=== PATIENT | male | born 1965 | race Caucasian/White ===

== ENCOUNTER → 2017-10-08 | Outpatient (CLI) | payer OTHER ==
--- NOTE | 2017-10-08 13:30 | XR ---
EXAMINATION TYPE: XR cervical spine w flex/ext DATE OF EXAM: 10/08/2017 COMPARISON: NONE HISTORY: Follow-up surgery TECHNIQUE: 6 views are submitted including flexion and extension lateral views. FINDINGS: The odontoid is intact. There are no compression deformities. The prevertebral soft tissue structur es are within normal limits. Extensive postsurgical changes noted throughout the cervical spine exte nding from C3 through the upper thoracic spine. Hypertrophic and degenerative disc disease at levels C3-C7. There is loss the normal lordosis. Alignment remains stable upon flexion and extension IMPRESSION: 1. Postoperative change which remains stable in flexion and extension.
== END | disposition home or self-care (01) ==
LOC: RADXRYALE 13:08
PROVIDERS: ATTEND Orthopaedic Surgery
DX: Z09 Encounter for follow-up examination after completed treatment for conditions other than malignant neoplasm (principal); Z98.1 Arthrodesis status; Z98.890 Other specified postprocedural states
CPT/HCPCS: 72052

== ENCOUNTER → 2017-11-05 | Outpatient (CLI) | payer OTHER ==
--- NOTE | 2017-11-08 09:28 | MR ---
EXAMINATION TYPE: MR cervical spine wo/w con DATE OF EXAM: 11/05/2017 COMPARISON: 03/30/2016 HISTORY: Fusion, Brachial radiculitis TECHNIQUE: Multiplanar, multisequence images of the cervical spine were acquired utilizing 8.5 mL intravenous Ga davist gadolinium contrast. Diffusion weighted imaging was performed. FINDINGS: There is posterior approach fusion of the C3-T1 vertebral bodies creating susceptibility ar tifact, new from the prior. The previously seen narrowing of the spinal canal and an AP diameter, pre sumably on a congenital basis, has been resolved as there is resection of the posterior elements at m ultiple levels. Bone marrow signal is within normal limits. Vertebral body heights and alignment are maintained. C2-C3: There is a new central small disc herniation with associated disc osteophyte complex. This res ults in minimal impression upon the ventral subarachnoid space although no spinal canal stenosis is i dentified by measurement. Neural foramen appear patent. C3-C4: Posterior fusion device. Susceptibility artifact. There appears to be resection of the fingerprint technician ior elements without spinal canal stenosis. A broad-based disc bulge with right paracentral disc prot rusion has been partially resected with mild bilateral neural foraminal narrowing remaining from unco vertebral hypertrophy and facet arthropathy. C4-C5: There is been interval resection of the previously seen disc protrusion. Mild right neural for aminal narrowing remains as result of facet arthropathy and uncovertebral hypertrophy. Spinal canal a nd neural foramen on the left appear patent. Resection of the spinous processes is seen. Susceptibili ty artifact from fusion hardware limits this level. C5-C6: Although there is limitation in visualization there appears to be a residual or recurrent left paracentral disc herniation creating impression upon the ventral subarachnoid space although posteri or element decompression relieves the previously seen spinal canal stenosis. There remains mild right and moderate left neural foraminal narrowing from uncovertebral hypertrophy and facet arthropathy. C6-C7: There remains a small left paracentral disc herniation although posterior elements have been r esected decompressing any spinal canal stenosis. Moderate right neural foraminal narrowing is also se en as result of uncovertebral hypertrophy and facet arthropathy. Left neural foramen appears patent. Susceptibility artifact slightly screws visualization at this level. C7-T1: Right eccentric disc bulge is present crating moderate right neural foraminal narrowing. Spina l canal and left neural foramen appear patent. Susceptibility artifact slightly screws visualization at this level. There is no evidence of abnormal postcontrast enhancement to suggest epidural fibrosis. Subcutaneous enhancement suggests fibrosis within the subcutaneous tunnel soft tissues. IMPRESSION: 1. Interval posterior approach cervical fusion of C3-T1 relieving multilevel spinal canal stenosis. T his creates susceptibility artifact and partially obscures visualization. No evidence of epidural fib rosis or abnormal postcontrast enhancement. 2. New small central disc herniation at C2-C3 without neural foraminal narrowing or spinal canal sten osis. 3. Multilevel residual or recurrent disc herniations as described above without spinal canal stenosis . Multilevel neural foraminal narrowing has not progressed from the prior exam, some improved as desc ribed above, due to uncovertebral hypertrophy and facet arthropathy.
== END | disposition home or self-care (01) ==
LOC: RADMRIMAIN 12:45
PROVIDERS: ATTEND Orthopaedic Surgery
DX: M48.02 Spinal stenosis, cervical region (principal); M99.71 Connective tissue and disc stenosis of intervertebral foramina of cervical region; M50.21 Other cervical disc displacement, high cervical region; M46.82 Other specified inflammatory spondylopathies, cervical region; Z98.1 Arthrodesis status
CPT/HCPCS: 72156; A9581

== ENCOUNTER → 2018-03-02 | Outpatient (CLI) | payer OTHER ==
--- NOTE | 2018-03-03 13:43 | CT ---
EXAMINATION TYPE: CT cervical spine wo con DATE OF EXAM: 03/02/2018 COMPARISON: MR cervical spine 11/05/2017 HISTORY: Arthrodesis follow up. CT DLP: 627 mGycm Automated exposure control for dose reduction was used. TECHNIQUE: CT scan of the cervical spine is obtained without contrast, axial images are obtained, sagittal and c oronal reformatted images are also reviewed. FINDINGS: Patient is status post posterior cervical fusion at T3-T1, fixation rods and posterior screws causes some streak artifact. Laminectomies present at C4, C5, C6. Alignment is maintained. There is multilev el spondylosis, loss of disc height C3-4, C4-5 and C5-6. Multilevel foraminal encroachment due to unc overtebral joint hypertrophy to include the right at 7, left greater than right C5-6, the right at C3 -4. No significant central canal stenosis. Cervical spine is visualized in its entirety from C1 through upper thoracic levels, minimal posterior disc bulge at C3-4 is noted. Prevertebral soft tissue appears within normal limits. The C1-C2 artic ulation is within normal limits on the coronal images. IMPRESSION: Surgical follow-up as described.
== END | disposition home or self-care (01) ==
LOC: RADCTMAIN 15:23
PROVIDERS: ATTEND Orthopaedic Surgery
DX: Z47.89 Encounter for other orthopedic aftercare (principal); M47.812 Spondylosis without myelopathy or radiculopathy, cervical region; Z98.1 Arthrodesis status
CPT/HCPCS: 72125

== ENCOUNTER → 2018-07-01 | Outpatient (CLI) | payer OTHER ==
--- NOTE | 2018-07-01 15:45 | CT ---
EXAMINATION TYPE: CT cervical spine wo con DATE OF EXAM: 07/01/2018 COMPARISON: CT cervical spine March 02, 2018. MRI cervical spine November 05, 2017 HISTORY: Bilateral arm numbness, history of fusion. CT DLP: 641 mGycm. Automated Exposure Control for Dose Reduction was Utilized. TECHNIQUE: CT scan of the cervical spine is obtained without contrast, axial images are obtained, sa gittal and coronal reformatted images are also reviewed. FINDINGS: Cervical spine is visualized in its entirety from C1 through upper thoracic levels, demonst rates straightened alignment without evidence of acute fracture or dislocation. Prevertebral soft ti ssue appears within normal limits. The C1-C2 articulation is within normal limits on the coronal vinay ges. Vertebral body heights are maintained. There is mild to moderate multilevel disc space narrowing with mild to moderate multilevel anterior spurring posterior fusion hardware noted C3-T1 levels bila terally similar to prior. There is posterior spinous process resection C4-C6 levels redemonstrated. Axial images at C3-C4 level show mild to moderate right-sided neural foraminal narrowing due to uncov ertebral facet spurring axial image 41 not significant change from prior. Axial images at C4-C5 level show uncovertebral facet degenerative changes bilaterally causing moderat e right and mild left-sided neural foraminal narrowing. Postsurgical change redemonstrated. Axial images at C5-C6 level shows posterior spurring and uncovertebral facet joint spurring with mode rate left greater than right bilateral neural foraminal narrowing redemonstrated. There is effacement of the left anterior thecal sac axial image 58 redemonstrated. Left paracentral disc protrusion also effaces anterior thecal sac on axial image 59. Axial images at C6-C7 level shows posterior fusion hardware with right lateral spurring causing asymm etric moderate right-sided neural foraminal narrowing. Axial images at C7-T1 level show posterior fusion hardware, spinal canal is preserved, bilateral neur al foramina are patent. Thyroid gland is normal in size. Lung apices are clear. IMPRESSION: Redemonstration of extensive postsurgical change C3-T1 levels with stable alignment. Rede monstration of multilevel degenerative changes as detailed above without significant change from prio r studies.
== END | disposition home or self-care (01) ==
LOC: RADCTMAIN 14:44
PROVIDERS: ATTEND Orthopaedic Surgery
DX: M47.812 Spondylosis without myelopathy or radiculopathy, cervical region (principal); Z98.890 Other specified postprocedural states; Z98.1 Arthrodesis status
CPT/HCPCS: 72125

== ENCOUNTER → 2018-07-12 | Outpatient (CLI) | payer OTHER ==
--- NOTE | 2018-07-12 12:33 | MR ---
EXAMINATION TYPE: MR lumbar spine wo con DATE OF EXAM: 07/12/2018 COMPARISON: None HISTORY: LT L4 Radiculopathy TECHNIQUE: Multiplanar, multisequence images of the lumbar spine were acquired. FINDINGS: There is slight straightening of usual lumbar lordosis, likely related to patient positioni ng. Conus medullaris is unremarkable terminating at L1. Bone marrow signal is within normal limits ot her than multilevel discogenic endplate changes. Multilevel disc desiccation is seen. L1-L2: There is a broad-based disc bulge and facet arthropathy resulting in mild bilateral neural for aminal narrowing and mild spinal canal stenosis. L2-L3: There is a broad-based disc bulge, facet arthropathy and ligamentum flavum buckling resulting in mild spinal canal stenosis and mild bilateral neural foraminal narrowing. L3-L4: There is a broad-based disc bulge, facet arthropathy and ligamentum flavum buckling. Consequen tly there is mild bilateral neural foraminal narrowing and mild spinal canal stenosis. L4-L5: Again a broad-based disc bulge, facet arthropathy and ligamentum flavum buckling are noted cre ating mild to moderate left and mild right neural foraminal narrowing and mild spinal canal stenosis. L5-S1: Small broad-based disc bulge is seen creating mild bilateral neural foraminal narrowing. No sp inal canal stenosis. IMPRESSION: Although there is no focal disc herniation multilevel broad-based disc bulges, facet arthropathy and ligamentum flavum buckling contribute to mild spinal canal stenosis from L1 through L5. There is also multilevel neural foraminal narrowing, most severe at L4-L5 on the left narrowing the foramen with t he exiting L4 nerve root is, at the level of the patient's stated symptomatic radiculopathy.
== END | disposition home or self-care (01) ==
LOC: RADMRIMAIN 11:45
PROVIDERS: ATTEND Internal Medicine
DX: M48.061 Spinal stenosis, lumbar region without neurogenic claudication (principal)
CPT/HCPCS: 72148

== ENCOUNTER → 2018-07-12 | Outpatient (CLI) | payer OTHER ==
--- NOTE | 2018-07-15 08:46 | EEG ---
ELECTROENCEPHALOGRAM REPORT DATE OF PROCEDURE: 07/12/2018 ELECTROENCEPHALOGRAM (EEG) REPORT: TECHNIQUE: A routine 18-channel EEG was performed with video using the 10-20 international placement system. HISTORY: Bilateral arm numbness for one week and smell's smoke twice per day. Approximately 30 months ago patient had a work-related injury resulting in a TBI and a C-spine fracture. CURRENT MEDICATIONS: Seroquel. STUDY DURATION: 28 minutes. FINDINGS: BACKGROUND: The background activity consisted of 8-9 Hz rhythmic waveforms, symmetrically distributed to both posterior quadrants. ACTIVATION: Hyperventilation not performed. PHOTIC STIMULATION: Symmetric driving seen. SLEEP: Drowsy. ABNORMALITIES: On one occasion during this recording a single sharp wave was seen over the left frontotemporal region with phase reversal at T3. IMPRESSION: Potentially abnormal EEG. As mentioned, on one occasion a sharp wave was seen over the left frontotemporal region. This was potentially epileptiform in nature. Please note that a definitive conclusion could not be reached as this was seen only one time during the study. Clinical correlation is recommended. If clinical concern remains for a seizure disorder, a longer term EEG could be considered. No seizures were recorded. MMODL / IJN: [id number] /
== END | disposition home or self-care (01) ==
LOC: NEUROMAIN 11:50
PROVIDERS: ATTEND Internal Medicine
DX: S06.9X0D Unspecified intracranial injury without loss of consciousness, subsequent encounter (principal)
CPT/HCPCS: 95816

== ENCOUNTER → 2018-10-15 | Outpatient (CLI) | payer OTHER ==
--- NOTE | 2018-10-15 20:22 | MR ---
EXAMINATION TYPE: MR cervical spine wo con DATE OF EXAM: 10/15/2018 COMPARISON: Prior MR cervical spine 03/30/2016 and 11/05/2017, CT cervical spine 07/01/2018 HISTORY: TECHNIQUE: Multiplanar, multisequence images of the cervical spine were acquired. C2-C3: No evidence for degenerative disc disease. No disc bulge/herniation or protrusion. No Canal stenosis. Foramina are patent bilaterally. C3-C4: There is some right-sided foraminal encroachment due to uncovertebral joint hypertrophy as on prior, no significant central stenosis. Small posterior broad-based disc bulge is noted. C4-C5: Similar appearance to prior exam. There is lateral extension of disc bulge causing some forami nal encroachment on the right similar to prior exam. C5-C6: No evidence for degenerative disc disease. No disc bulge/herniation or protrusion. No Canal stenosis. Foramina are patent bilaterally. C6-C7: Lateral disc bulge encroaches somewhat on the neural foramen on the right similar to prior exa m. C7-T1: No evidence for degenerative disc disease. No disc bulge/herniation or protrusion. No Canal stenosis. Foramina are patent bilaterally. Posterior arthrodesis C3-T1, there is susceptibility artifact. There is normal alignment. Cervical s hugo cord is of normal signal. Craniovertebral junction relationships are within normal limits. Po stop changes are again noted status post posterior cervical fusion and multilevel laminectomies. Ther e is stable alignment. Disc spaces show a stable appearance compared to prior exam. There is spondylo sis present especially at C3-4, C4-5 with associated loss of disc height and signal also noted at C5- 6 and C6-7. No significant spinal stenosis. IMPRESSION: Stable degenerative disc disease, postop findings and additional findings above.
== END | disposition home or self-care (01) ==
LOC: RADMRIMAIN 11:13
PROVIDERS: ATTEND Neurological Surgery
DX: M47.892 Other spondylosis, cervical region (principal); M50.31 Other cervical disc degeneration, high cervical region; Z98.1 Arthrodesis status
CPT/HCPCS: 72141

== ENCOUNTER → 2019-01-06 | Outpatient (CLI) | payer OTHER ==
--- NOTE | 2019-01-07 10:08 | XR ---
EXAMINATION TYPE: XR hand complete RT DATE OF EXAM: 01/06/2019 CLINICAL HISTORY: pain TECHNIQUE: Frontal, lateral and oblique images of the right hand are obtained. COMPARISON: None. FINDINGS: There is no acute fracture/dislocation evident. The joint spaces appear within normal limi ts. The overlying soft tissue appears unremarkable. IMPRESSION: There is no acute fracture or dislocation ICD 10 NO FRACTURE, INITIAL EVALUATION
== END | disposition home or self-care (01) ==
LOC: RADXRYALE 16:14
PROVIDERS: ATTEND Family Medicine
DX: M25.531 Pain in right wrist (principal)

== ENCOUNTER → 2019-01-20 | Outpatient (CLI) | payer OTHER ==
--- NOTE | 2019-01-23 02:17 | MR ---
EXAMINATION TYPE: MR wrist RT wo con DATE OF EXAM: 01/20/2019 COMPARISON: None HISTORY: Rt wrist pain Standard multiplanar, multisequence MRI departmental protocol Multiplanar, multisequence images of the right wrist were acquired. FINDINGS: There is slight narrowing of the radiocarpal joint space. The carpal bones appear intact. T he triangular cartilage appears intact. Flexor and extensor tendons appear intact. I see no focal bon e destruction. Intercarpal joint spaces are fairly normal. There are no erosions. There is no subluxa tion. There is minor spurring at the first carpometacarpal joint. There is mild increased fluid aroun d the first carpometacarpal joint. There is slight increased fluid at the distal radiohumeral joint. There is mild increased fluid signal within the posterior soft tissues at the capitate. There is a 4 mm degenerative cyst in the capitate. There is no evidence of a soft tissue mass. IMPRESSION: Minimal osteoarthritis at the first carpometacarpal joint. Minimal osteoarthritis at the radiocarpal joint. Mild increased carpal fluid consistent with mild synovitis.
== END | disposition home or self-care (01) ==
LOC: RADMRIMAIN 19:18
PROVIDERS: ATTEND Family Medicine
DX: M18.11 Unilateral primary osteoarthritis of first carpometacarpal joint, right hand (principal)

== ENCOUNTER → 2019-05-04 | Outpatient (CLI) | payer OTHER ==
--- NOTE | 2019-05-04 11:34 | XR ---
EXAMINATION TYPE: XR chest 2V DATE OF EXAM: 05/04/2019 COMPARISON: NONE TECHNIQUE: PA and lateral views submitted. HISTORY: Shortness of breath FINDINGS: The lungs are clear and there is no pneumothorax, pleural effusion, or focal pneumonia. Hypertrophi c and degenerative change of the spine. Postsurgical change involving the cervical spine. Heart is en larged and measures mild coarsened interstitium which likely is chronic. Arthropathy of the shoulders . Mild soft tissue prominence along the right cardiophrenic angle. IMPRESSION: 1. Coarsened interstitium can be associated with chronic interstitial lung disease or bronchitis. Add itionally is prominence along the right cardiophrenic angle for which CT scan of the chest is recomme nded 2. Cardiomegaly.
== END | disposition home or self-care (01) ==
LOC: RADXRYALE 10:43
PROVIDERS: ATTEND Family Medicine
DX: I51.7 Cardiomegaly (principal)
CPT/HCPCS: 71046

== ENCOUNTER → 2019-05-19 | Outpatient (CLI) | payer OTHER ==
--- NOTE | 2019-05-19 09:11 | CT ---
EXAMINATION TYPE: CT chest wo con DATE OF EXAM: 05/19/2019 COMPARISON: None HISTORY: Interstitial pulmonary disease, unspecified CT DLP: [address] of the chest was performed with lung and mediastinal window settings submitted. The la ck of contrast limits evaluation of the vascular, mediastinal and parenchymal structures including th e upper abdomen. LUNGS: The lungs are clear and free of infiltrate. No atelectasis. No pulmonary nodule or mass is de tected. No pleural effusion. No CT evidence of interstitial lung disease. MEDIASTINUM/CAMI: Thoracic aorta is of normal caliber with limited evaluation given lack of contrast . The heart is not enlarged. No evidence for mediastinal mass. No lymph nodes greater than 1cm. UPPER ABDOMEN: No significant abnormality is seen. OTHER: No significant other abnormality. IMPRESSION: 1. No evidence for interstitial lung disease at this time.
== END | disposition home or self-care (01) ==
LOC: RADCTMAIN 08:16
PROVIDERS: ATTEND Family Medicine
DX: J84.9 Interstitial pulmonary disease, unspecified (principal); R93.89 Abnormal findings on diagnostic imaging of other specified body structures
CPT/HCPCS: 71250

== ENCOUNTER → 2019-06-13 | Outpatient (CLI) | payer OTHER ==
--- NOTE | 2019-06-13 22:09 | CT ---
EXAMINATION TYPE: CT cervical spine wo con DATE OF EXAM: 06/13/2019 COMPARISON: CT cervical spine July 13, 2018. MRI cervical spine August 15, 2018 HISTORY: Status post arthrodesis progress study. Failed cervical fusion per patient. CT DLP: 599.5 mGycm. Automated Exposure Control for Dose Reduction was Utilized. TECHNIQUE: CT scan of the cervical spine is obtained without contrast, axial images are obtained, sa gittal and coronal reformatted images are also reviewed. FINDINGS: Cervical spine is redemonstrated in its entirety from C1 through upper thoracic levels, and redemonstrates stable and straightened alignment without evidence of acute fracture or dislocation. Prevertebral soft tissue appears within normal limits. The C1-C2 articulation remains within normal limits on the coronal images. Evidence of posterior decompression C4-C6 levels. Persistent and stabl e posterior interpedicular rods and screws running from C3 through T1 levels bilaterally. Vertebral b richard heights are maintained. Moderate disc space narrowing and anterior spurring C3-C4 level. Mild to moderate disc space narrowing and moderate anterior spurring C4-C5 level. Mild disc space narrowing w ith mild/moderate spurring C5-C6 level. Review of axial images redemonstrates posterior spur disc complex effacing the anterior thecal sac at C3-C4 level with asymmetric moderate right-sided neural foraminal narrowing due to foraminal spurrin g. No significant change from prior. Axial images at C4-C5 level redemonstrated uncovertebral facet spurring causing [id number] righ t-sided neural foraminal narrowing. Axial images at C5-C6 level redemonstrate central disc protrusion effacing anterior thecal sac and un covertebral facet spurring causing [id number] bilateral neural foraminal narrowing. Axial images at C6-C7 level show asymmetric right-sided uncovertebral facet spurring causing moderate right-sided neural foraminal narrowing. No significant change from prior. Axial images at C7-T1 level show asymmetric right-sided marginal spurring causing moderate right-side d neural foraminal narrowing. Thyroid gland remains within normal limits. Lung apices are clear. IMPRESSION: There is stable and straightened alignment with posterior decompression at cervical level s. Multilevel degenerative changes seen as detailed above most prominent at C3-C4 level. No signific ant change or progression from prior CT.
== END | disposition home or self-care (01) ==
LOC: RADCTMAIN 17:47
PROVIDERS: ATTEND Orthopaedic Surgery
DX: Z09 Encounter for follow-up examination after completed treatment for conditions other than malignant neoplasm (principal); Z98.1 Arthrodesis status
CPT/HCPCS: 72125

== ENCOUNTER → 2019-07-25 | Outpatient (CLI) | payer OTHER ==
--- NOTE | 2019-07-25 23:13 | CONS ---
CONSULTATION REASON FOR CONSULTATION: Insomnia and possible sleep apnea This is a 54-year-old male patient, referred to me for difficulties in falling asleep and staying asleep. The patient also was recently noted to have loud snoring and gasping for air. Based on this mixed picture, he was referred to me for further evaluation. The patient states that he has been involved in a traumatic brain injury that was occupational in nature back in February of 2016. The patient had a closed-head injury and he is currently having deficits, including memory problems, difficulties with cognition, neurogenic bladder, visual conversion insufficiency, hyperreflexia. He had also a C-spine injury requiring C-spine fusion between C3 and T1 in addition to laminectomy. The patient has been utilizing baclofen and no other pain medications for now. He had been having difficulties in falling asleep and maintaining sleep. He was started on doxepin and dose has been increased up to 25 mg at bedtime. For now, his sleep cycle is still irregular. For the most part, he sleeps around 3 to 4 hours between 4 or 5 a.m. until 8 or 9 a.m. He goes to bed around 10:00 and he does various activities, such as trying to go to sleep, tosses and turns. 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 Once asleep, he has been snoring and quitting breathing and his sleep is fragmented. He wakes up at least 8 to 10 times in the middle of the night. He has gained weight on the order of 15 pounds over the past 5 years. He has a neurogenic bladder, as mentioned. He has chronic pain, also. PAST MEDICAL HISTORY: 1. TBI. 2. Neurogenic bladder. 3. Chronic pain. PAST SURGICAL HISTORY: Includes C-spine fusion between C3 and T1. The patient has undergone also laminectomy. He has had also hand surgery. The cervical spine is essentially fused for now. MEDICATION: Medication includes baclofen 10 mg twice a day, tamsulosin 0.4 mg p.o. daily, Myrbetriq 25 mg p.o. daily, doxepin 25 mg p.o. daily, testosterone on a weekly basis and growth hormone on a daily basis. ALLERGIES: NOT KNOWN. SOCIAL HISTORY: He is a nonsmoker. No history of alcoholism. No history of IV drugs. OCCUPATIONAL HISTORY: He is currently fully disabled. He used to drive a truck. REVIEW OF SYSTEMS: Fourteen-point review of systems was done. Positive findings are all mentioned in the history of present illness. His current Mobile Score is 1. No sleep paralysis. No hallucinations. No cataplexy. He feels wide awake and alert during the day, and despite his limited hours of sleep, which are around 3 to 4 hours, he does not have major hypersomnia or sleepiness during the day. He does not take any naps during the day. No restlessness in the lower extremities. No sleepwalking or sleeptalking. No unusual or behavior at nighttime. No anxiety. No panic attacks. No depression. No palpitations. No heartburn. PHYSICAL EXAMINATION: BP is 151/80, pulse 87, respirations 16, temperature 98.7, saturation 96% on room air. BMI 32.8. Mobile score 1. Weight is 211. Height is 5 feet 7 inches. GENERAL APPEARANCE: Calm, comfortable. HEAD: Atraumatic, normocephalic. NECK: Supple. No JVD. No goiter or neck masses. Surgical spine scar is dry, clean and intact. Mallampati class IV. There is significant crowding of the posterior pharynx. LUNGS: Clear to auscultation. HEART: Heart sounds are regular rate and rhythm. Normal S1, S2. No S3, S4. No murmurs. ABDOMEN: Soft, nontender. No organomegaly. EXTREMITIES: No edema. No cyanosis or clubbing. NEUROLOGIC: The patient has some cognitive impairment in addition to hyperreflexia and spasticity. IMPRESSION: 1. Traumatic brain injury in February of 2016. 2. Neurologic deficits, including memory impairment, cognitive impairment, neurogenic bladder, visual conversion insufficiency and hyperreflexia. 3. Insomnia post traumatic brain injury without major hypersomnia or sleepiness during the day. Mobile score is 1. This has been complicated by some poor sleep hygiene measures. 4. Possible obstructive sleep apnea. 5. Chronic neck pain. PLAN: 1. I am going to improve the patient's sleep hygiene measures in general. 2. Sleep restrictions, where the patient will be asked to sleep between 1 a.m. and 5 to 6 a.m. His time to get up from bed will be 6 a.m. in the morning. 3. Stimulus control. 4. Pain control. 5. Continue baclofen. 6. Polysomnogram to evaluate for sleep apnea and treat accordingly. 7. Will continue to follow. MMODL / IJN: [id number] /
== END | disposition home or self-care (01) ==
LOC: SLEEP 16:22
PROVIDERS: ATTEND Internal Medicine Critical Care Medicine
DX: G47.00 Insomnia, unspecified (principal); R29.818 Other symptoms and signs involving the nervous system; R41.89 Other symptoms and signs involving cognitive functions and awareness; R41.3 Other amnesia; Z87.820 Personal history of traumatic brain injury; M54.2 Cervicalgia; G89.29 Other chronic pain; Z98.1 Arthrodesis status; Z98.890 Other specified postprocedural states; Z79.899 Other long term (current) drug therapy; Z79.890 Hormone replacement therapy
CPT/HCPCS: 99211